=== PATIENT | male | born 1985 | race Caucasian/White ===

== ENCOUNTER 2017-12-29 00:17 | Emergency (ER) | payer MEDICAID, SELFPAY ==
[2017-12-29 00:18] VITALS: BP 130/67; PULSE 93; RESP 18; TEMP 36.4; O2SAT 99; BMI 33.5
[2017-12-29 01:20] VITALS: PULSE 87; RESP 17; O2SAT 99
[2017-12-29] MEDS: LORazepam 1 MG Tablet PO (02:16)
--- NOTE | 2017-12-29 02:33 | ED.RN ---
PT HARD STICK. THIS RN HAS TRIED [address] IVS [address] TRACEY ATTEMPTED 2X WITH NO SUCCESS. WAITING FOR FURTHER ORDERS.
[2017-12-29 02:34] LABS: AST(SGOT) 16 U/L (15-37); Alanine Aminotransfer ALT/SGPT 17 U/L (16-61); Alkaline Phosphatase 237 U/L (45-117); Anion Gap 5 (5-15); BUN 10 mg/dL (7-18); BUN/Creat Ratio 11.9 RATIO (10-20); Bilirubin, Direct 0.18 mg/dL (0.00-0.30); Calcium,Total 9.1 mg/dL (8.5-10.1); Chloride 101 mmol/L (98-107); Creatinine, Serum 0.84 mg/dL (0.70-1.30); EST Glomerular Filtration Rate 111 mL/min (>60); Est Glom Filt Rate - Afr Amer 134 mL/min (>60); Estimated Creatinine Clearance 131.97 ml/min; Globulin 5.4 g/dL (2.2-4.2); Glucose 118 mg/dL (74-106); Potassium 3.7 mmol/L (3.5-5.1); Protein, Total 8.4 g/dL (6.4-8.2); Sodium Level 139 mmol/L (136-145)
[2017-12-29 02:39] LABS: Absolute Lymphocyte Count 1.47 X10^3/ul (0.83-4.51); Absolute Neutrophil Count 4.1 X10^3/uL (2.0-7.7); Basophil# 0.05 X10^3/uL; Basophil% 0.8 % (0-1); Eosinophil# 0.19 X10^3/uL; Eosinophils% 3.1 % (0-5); Hematocrit 31.3 % (40-54); Hemoglobin 8.7 g/dl (13.0-16.5); Lymphocyte # 1.47 X10^3/ul (4.0); Lymphocyte % 23.9 % (19-41); Mean Corp Hgb Conc 27.8 g/gl (32-36); Mean Corpuscular Hgb 18.6 pg (27.0-32.0); Mean Corpuscular Volume 66.9 fL (80-94); Monocyte# 0.38 X10^3/uL; Monocyte% 6.2 % (0-10); Neutrophil # 4.05 X10^3/uL (2.7-7.7); Neutrophil % 65.7 % (47-70); Platelet Count 451 K/mm3 (150-450); RBC Distribution Width CV 29.7 % (11.6-14.6); RBC Distribution Width SD 72.1 fl (35.1-43.9); Red Blood Count 4.68 M/mm3 (4.6-6.2); White Blood Count 6.2 K/mm3 (4.4-11.0)
[2017-12-29 02:45] LABS: Red Blood Cells-Urine 0 SEEN /hpf (0-5)
[2017-12-29 02:46] LABS: Color, Urine Yellow (Yellow); Glucose, Dipstick Normal (Normal); Ketone-Dipstick Negative (Negative); Leukocyte Esterase-Dipstick 25 /ul (Negative); Nitrite-Dipstick Negative (Negative); Occult Blood-Urine Negative /ul (Negative); Protein-Dipstick 15 mg/dl (Negative); Urine Bilirubin Dipstick Negative (Negative); Urine Clarity Sl. Cloudy (Clear); Urine Urobilinogen Normal (Normal)
[2017-12-29 02:51] LABS: Bacteria RARE /hpf (None Seen); Mucous, Urine 1+ /hpf (<or=2+); Squamous Epithelial Cells - UA 0-5 SEEN /hpf (0-5); White Blood Cells 0-5 SEEN /hpf (0-5)
[2017-12-29 02:57] LABS: Alcohol, Blood (Medical)-Serum < 3.0 mg/dL
[2017-12-29 03:02] LABS: Anisocytosis 1+; Differential Comment SCAN; Differential Indicated SCAN CRITERIA MET; POSITIVE COUNT YES; POSITIVE DIFFERENTIAL NO; POSITIVE MORPHOLOGY YES; Platelet Estimate SLT INC (ADEQ); Platelet Morphology LARGE; Polychromasia 1+
[2017-12-29 03:03] VITALS: BP 112/67; PULSE 79; RESP 12; O2SAT 99
[2017-12-29 03:03] LABS: Hypochromasia 1+; Microcytosis 1+
[2017-12-29 03:07] LABS: Amphetamine Urine VISTA NEGATIVE (<1000 ng/mL); Barbiturate Urine VISTA NEGATIVE (< 200 ng/mL); Benzodiazepine Urine VISTA NEGATIVE (< 200 ng/mL); Cocaine Urine VISTA NEGATIVE (< 300 ng/mL); Ecstacy Urine VISTA NEGATIVE (< 500 ng/mL); Methadone Urine VISTA NEGATIVE (< 300 ng/mL); PCP Urine VISTA NEGATIVE (< 25 ng/mL); THC Urine VISTA NEGATIVE (< 50 ng/mL); Vista UDS pH Range 7
--- NOTE | 2017-12-29 03:33 | ED.DCSUM_ITS ---
- ER Visit Summary Date of Service: 12/29/17 Chief Complaint: Heroin withdrawal, low hemoglobin, left leg swelling History of Present Illness: The patient is a 32 M who presents with multiple symptoms. He tells me that he was admitted at [facility], [place] over the weekend. Him and his family did not feel he was getting adequate treatment for his heroin withdrawal so they signed out AMA and came to this facility. He states he has been having leg swelling for a couple of months. He gets Lasix intermittently due to this. He does not take it daily. He states his last use of heroin was 48 hours ago. He has had a history of transfusions in the past because of anemia but none this weekend. He states that he feels anxious and would like to be admitted for heroin withdrawal treatment. Physical Examination: Vital signs reviewed. HEENT exam unremarkable. Heart is regular rate and rhythm without murmurs. Lungs are clear to auscultation. Abdomen soft and nontender. Extremities reveal no edema. Skin exam reveals track phillips throughout his body. He has old abscesses on the legs. There is some drainage coming from the left proximal tibial area. There are many scars on the arms from his previous IV drug use. His neurologic exam is normal. Test Results: Hemoglobin 8.7. Bicarb 33. Tox and alcohol are negative. Emergency Department Course and Treatment: Unable to establish an IV due to the scarring. I attempted an external jugular cannulation as well as a peripheral truncated IV. We are still unable to do so. I feel he can be treated with oral antibiotics tonight. He was given Ativan to help with his anxiousness. I discussed the case with hospitalist. We will admit him for the hospital for heroin withdrawal Treatment Plan: [] Disposition: Admit Impression: Heroin withdrawal, left leg cellulitis This note was generated with [employer] dictation software. It may contain incorrect words, spelling, and punctuation that were not noted in review of the chart prior to signing ED Disposition - Plan for ED Patient: Chief Complaint: General Illness Referrals: Care Physician,No Primary [Primary Care Provider] -
--- NOTE | 2017-12-29 04:00 | ED.DEP ---
ED Disposition - Plan for ED Patient: Disposition: Home or Assisted Living Chief Complaint: General Illness Instructions: ED Narcotic Abuse Prescriptions: proMETHazine tablet [Phenergan] 25 mg PO Q6H PRN PRN #15 tab PRN Reason: Nausea Dicyclomine HCl [Bentyl] 20 mg PO TIDAC #20 cap hydrOXYzine pamoate capsule [Vistaril] 50 mg PO TID PRN PRN #30 cap PRN Reason: Anxiety Smz/Tmp Ds [Bactrim Ds] 1 tab PO BID #14 tab Referrals: Care Physician,No Primary [Primary Care Provider] -
[2017-12-29] MEDS: Smz/Tmp Ds Tablet 1 TABLET PO (04:08)
[2017-12-29] MEDS: hydrOXYzine PAM 25 MG Capsule 50 MG PO (04:09)
[2017-12-29 04:16] VITALS: PULSE 77; RESP 15; O2SAT 100
== END 2017-12-29 04:17 | disposition home or self-care (01) ==
LOC: ED 02:46 → MS2 04:01
PROVIDERS: Emergency Provider Emergency Medicine
DX: F11.23 Opioid dependence with withdrawal (principal); L03.116 Cellulitis of left lower limb; B96.89 Other specified bacterial agents as the cause of diseases classified elsewhere
CPT/HCPCS: 80048; 80076; 80307; 80320; 81001; 85025; 86850; 86900; 99285; A4216; G0480